=== PATIENT | female | born 1985 | race Native Hawaiian/Other Pacific Islander ===

== ENCOUNTER 2017-04-07 20:24 | Inpatient (IN) | payer OTHER ==
[2017-04-07 20:53] VITALS: BMI 32.9
[2017-04-07] MEDS ORDERED: Lactated Ringer's 1,000 ML IV SCH (21:00)
--- NOTE | 2017-04-07 21:30 | OBADHP ---
Datetime: 04/07/2017 20:57 IP Admit Plan Other: Cervical ripening Admit Comment, IP Provider: 31 y.o. , LMP 07/08/16, MARC 04/13/17, EGA 38w 6d confirmed by sono at 12 weeks, c/o decreased movement since late evening. Also, (+) vaginal spotting upon micturiti on this evening. Denies LOF; (+) vaginal pressure and possible occ Ctx. care: Drs. Hankins/Nick bland. Last visit 04/06/17, cervical exam then was told "cervix is dilated". 1) IUGR; 2) hypothyroid o n synthroid. 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 H/O PCOS PMH: 06/2016, hypothyroid PSH: denies NKDA Meds: PNV, iron, folate;and synthroid 75 micrograms - all taken QD Soc Hx: denies tobacco, illicit drug or EtOH use. x 3 years. Unemployed Fam Hx; Mother alive 46 -no med issues. Father alive 52 - DM. MGM - endometrial cancer. P.E.: as above. WD in NAD. Awake, alert, oriented to time, person and place. Pleasant and cooperat pietro. Accompanied by and her mother Assessment: 31 yo P0. 38w 6d, IUGR, decreased movement. GBS (-). (+) accelerations with scal p stimulation. Category 1 tracing. D/W patient, admission for cervical ripening and (vaginal) delive ry. Patient expressed an understanding and agrees. Clinically stable Plan: 1) Admit 2) NPO 3) Admission labs 4) Continuous EFM 5) Cervidil 6) Pain medications, upon request 7) Anticipate vaginal delivery - as per, and discussed with, Dr. Corea Pelvic Type - PN: Adequate Extremities - PN: Normal Abdomen - PN: Normal Back - PN: Normal Breast - PN: Normal Lungs - PN: Normal Heart - PN: Normal Thyroid - PN: Not Done Neurologic - PN: Normal HEENT - PN: Normal General - PN: Normal Presentation-Admit: Vertex FHR - Baseline A Provider: 135 Contraction Comments Provider: sporadic Comments, ACOG Physical Exam: Skin: warm, dry, intact Abdomen: Gravid. Soft, non tender. Fundal height 39 cm All other systems reviewed and are negative Gestation - Est Wks by US: 38w 6d IP Hx Assessment: The History has been Reviewed and is Current Vital Signs Provider: Reviewed; Within Normal Limits IP Chief Complaint: Decreased movement NICHD Variability Prov Fetus A: Moderate 6-25bpm FHR Category Provider Fetus A: Category I NICHD Decel Fetus A IP Provider: None Dilatation, Provider: 2 Effacement, Provider: 30 Station, Provider: -3 Genitourinary Exam: Normal DTRs - PN: Not Done EGA AdmitDate IP: 39.1 IP Adm Impression: Term, intrauterine ; No Active Labor; Intact Membranes IP Admit Plan: Admit to unit
--- NOTE | 2017-04-07 21:33 | OBPN ---
Datetime: 04/07/2017 21:29 IP Progress Note Comment: Cervidil placed in posterior vaginal vault A/P: 31 yo P0, 38w 6d, decreased movement; IUGR, hypothyroid. Category 1 tracing. Clinically stable. - continue present management Datetime: 04/07/2017 20:57 Contraction Comments Provider: sporadic FHR - Baseline A Provider: 135 Gestation - Est Wks by US: 38w 6d Presentation-Admit: Vertex Vital Signs Provider: Reviewed; Within Normal Limits FHR Category Provider Fetus A: Category I NICHD Variability Prov Fetus A: Moderate 6-25bpm Dilatation, Provider: 2 Effacement, Provider: 30 Station, Provider: -3 NICHD Decel Fetus A IP Provider: None
[2017-04-07 21:55] LABS: RBC URINE < 1 /hpf (0-3); URINE BILIRUBIN NEGATIVE (NEGATIVE); URINE BLOOD NEGATIVE (NEGATIVE); URINE COLOR Straw (YELLOW); URINE GLUCOSE (UA) NORMAL (Normal); URINE KETONE NEGATIVE (NEGATIVE); URINE LEUKOCYTE ESTERASE NEG Leu/uL (Negative); URINE PROTEIN NEGATIVE (NEGATIVE); URINE UROBILINOGEN NORMAL mg/dL (0.2-1.0); WBC URINE 1 /hpf (0-5)
[2017-04-07 22:00] LABS: CHLORIDE 101 mmol/L (98-107); POTASSIUM 3.5 mmol/L (3.6-5.2); SODIUM 134 mmol/L (132-148)
[2017-04-07 22:02] LABS: GFR AFRICAN-AMERICAN > 60
[2017-04-07 22:03] LABS: ALB/GLOB RATIO 1.1 (1.0-2.1); ALKALINE PHOSPHATASE 112 U/L (38-126); ALT/SGPT 13 U/L (9-52); AST/SGOT 19 U/L (14-36); BILIRUBIN,TOTAL 0.4 mg/dL (0.2-1.3); BLOOD UREA NITROGEN 5 mg/dL (7-17); CARBON DIOXIDE 21 mmol/L (22-30); GLUCOSE,RANDOM 139 mg/dL (65-105); TOTAL PROTEIN 6.6 g/dL (6.3-8.3)
[2017-04-07] MEDS ORDERED: cefOXitin IV 2 gm in Dextrose 0 GM/0 ML BAG IVPB ONE (22:46)
[2017-04-07] MEDS ORDERED: Sodium Citrate/Citric Acid 15 ml Sol ONE (22:46)
[2017-04-08] MEDS ORDERED: Oxytocin 30 UNIT 30 UNITS/500 ML BAG IV ONE (06:54)
[2017-04-08] MEDS ORDERED: Bupivacaine 0.125%/FentaNYL 200 ML EPI ONE (10:09)
[2017-04-08] MEDS ORDERED: Bupivacaine HCl 0.25% PF (10 ml) Inj ONE (13:02)
--- NOTE | 2017-04-08 15:05 | OBPN ---
Datetime: 04/08/2017 10:44 IP Procedures: Artificial ROM; Sterile Vag Exam IP Progress Plan: Continue present management Contraction Comments Provider: q1-4 FHR - Baseline A Provider: 130 IP Progress Note Comment: pt was examined at bbed side ve 370/-2 arom clear cont pitocoin anticipate Vital Signs Provider: Reviewed; Within Normal Limits NICHD Accel Fetus A IP Provider: 15X15 FHR Category Provider Fetus A: Category I NICHD Variability Prov Fetus A: Moderate 6-25bpm Dilatation, Provider: 3 Effacement, Provider: 70 Station, Provider: -2 NICHD Decel Fetus A IP Provider: None Datetime: 04/07/2017 20:57 IP Informed Consent Obtain: Vaginal Delivery
--- NOTE | 2017-04-08 15:05 | OBPN ---
Datetime: 04/08/2017 11:43 IP Procedures Other: iupc IP Procedures: Sterile Vag Exam IP Progress Plan: Continue present management FHR - Baseline A Provider: 130 IP Progress Note Comment: pt wasa examineed at bed side ve 3-4/70/-2 iupc placed cont pitocin anticipate NICHD Accel Fetus A IP Provider: 15X15 FHR Category Provider Fetus A: Category I NICHD Variability Prov Fetus A: Moderate 6-25bpm
--- NOTE | 2017-04-08 15:05 | OBADHP ---
Datetime: 04/08/2017 10:44 FHR - Baseline A Provider: 130 Contraction Comments Provider: q1-4 Vital Signs Provider: Reviewed; Within Normal Limits NICHD Variability Prov Fetus A: Moderate 6-25bpm NICHD Accel Fetus A IP Provider: 15X15 FHR Category Provider Fetus A: Category I NICHD Decel Fetus A IP Provider: None Dilatation, Provider: 3 Effacement, Provider: 70 Station, Provider: -2 Datetime: 04/07/2017 20:57 Admit Comment, IP Provider: 31 y.o. , LMP 07/08/16, MARC 04/13/17, EGA 38w 6d confirmed by sono at 12 weeks, c/o decreased movement since late evening. Also, (+) vaginal spotting upon micturiti on this evening. Denies LOF; (+) vaginal pressure and possible occ Ctx. care: Drs. Hankins/Nick bland. Last visit 04/06/17, cervical exam then was told "cervix is dilated". 1) IUGR; 2) hypothyroid o n synthroid. 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 H/O PCOS PMH: 06/2016, hypothyroid PSH: denies NKDA Meds: PNV, iron, folate;and synthroid 75 micrograms - all taken QD Soc Hx: denies tobacco, illicit drug or EtOH use. x 3 years. Unemployed Fam Hx; Mother alive 46 -no med issues. Father alive 52 - DM. MGM - endometrial cancer. P.E.: as above. WD in NAD. Awake, alert, oriented to time, person and place. Pleasant and cooperat pietro. Accompanied by and her mother Assessment: 31 yo P0. 38w 6d, IUGR, decreased movement. GBS (-). (+) accelerations with scal p stimulation. Category 1 tracing. D/W patient, admission for cervical ripening and (vaginal) delive ry. Patient expressed an understanding and agrees. Clinically stable Plan: 1) Admit 2) NPO 3) Admission labs 4) Continuous EFM 5) Cervidil 6) Pain medications, upon request 7) Anticipate vaginal delivery - as per, and discussed with, Dr. Nahomy Starks with above EGA AdmitDate IP: 39.1
--- NOTE | 2017-04-08 15:31 | OBPN ---
Datetime: 04/08/2017 15:27 IP Progress Impression: Arrest of dilatation/descent IP Procedures: Sterile Vag Exam FHR - Baseline A Provider: 130 IP Progress Note Comment: pt was examined at bed side ve 3-4/70/-2 unchanged pitocin 20 mu max. montevido units >200. adequate will rexamine in 1hr and if no change will do c/s pt undertand and agrees Vital Signs Provider: Reviewed; Within Normal Limits NICHD Accel Fetus A IP Provider: 15X15 FHR Category Provider Fetus A: Category I NICHD Variability Prov Fetus A: Moderate 6-25bpm Dilatation, Provider: 3 Effacement, Provider: 70 Station, Provider: -2
[2017-04-08] MEDS ORDERED: cefOXitin IV 2 gm in Dextrose 2 GM/50 ML BAG IVPB ONE (16:22)
[2017-04-08] MEDS ORDERED: Lidocaine Hydrochloride 5 ML INJ ONE (16:34)
[2017-04-08] MEDS ORDERED: Lidocaine 2% MPF (5 ml) Inj ONE (16:35)
[2017-04-08] MEDS ORDERED: Morphine 1 mg/ml preservative-free Inj(Duramorph) ONE (16:35)
[2017-04-08] MEDS ORDERED: Oxytocin 20 units in LR 2,000 ML IV ONE (16:42)
--- NOTE | 2017-04-08 16:48 | OBPN ---
Datetime: 04/08/2017 16:45 IP Progress Impression: Arrest of dilatation/descent IP Procedures: Sterile Vag Exam IP Progress Note Comment: pt was examined at bed side ve /-2] unchaned x 10 hr pitocin 20 colby > 200 la primary c;s called for failure to progres informed consent signed r/a/b discussee
[2017-04-08] MEDS ORDERED: ePHEDrine 50 mg/ml Inj ONE (16:49)
--- NOTE | 2017-04-08 17:34 | OBDS ---
DELIVERY PERSONNEL Delivery Doctor: Talisha Corea MD Scrub Nurse: Thuy Cabrera Rd Scientist: Joan Burris RN Anesthesiologist: DR Alondra Littlejohn MATERNAL INFORMATION Delivery Anesthesia: Epidural Medications in Delivery: pitocin Placenta Cultured: No Maternal Complications: Other Other Maternal Complications: iugr, hypothyroidism RN Comments: baby girl delivered via primary csection. apgars 9/9 baby stable and remains with mothe r Provider Comments: baby deliverd in lidia. end clean no com cord rround neck 9/9 LABOR SUMMARY EDC: 04/13/2017 00:00 No. Babies in Womb: 1 LABOR INFORMATION Reason for Induction: Not Applicable Onset of Labor: 04/07/2017 16:00 Cervical Ripening Agents: Cervidil (Annotations: cervidil removed) Oxytocin: Augmentation Group B Beta Strep: Negative Antibiotics # of Doses: 0 Antibiotics Time of Last Dose: 0 MEMBRANES Membranes Rupture Method: Artificial Rupture of Membranes: 04/08/2017 11:40 Length of Rupture (hrs): 5.25 Amniotic Fluid Color: Clear Amniotic Fluid Amount: None Amniotic Fluid Odor: Normal STAGES OF LABOR Stage 3 hrs: 0 Stage 3 min: 1 Total Time in Labor hrs: 24 Total Time in Labor min: 56 CSECTION DELIVERY Primary Indication: Other Other Primary Indication: Failure to progress CSection Urgency: Non Elective CSection Incidence: Primary Labor: Labor Elective: Nonelective CSection Incision: Lower Uterine Transverse BABY A INFORMATION Delivery Date/Time: 04/08/2017 16:55 Method of Delivery: Born in Route : No : N/A Forceps: N/A Vacuum Extraction: N/A Shoulder Dystocia : No SHOULDER DYSTOCIA BABY A Delivery Date/Time: 04/08/2017 16:55 PRESENTATION/POSITION BABY A Presentation: Cephalic Cephalic Presentation: Vertex Vertex Position: Right Occipital Posterior Breech Presentation: N/A PLACENTA INFORMATION BABY A Placenta Delivery Time : 04/08/2017 16:56 Placenta Method of Delivery: Manual Removal Placenta Status: Delivered SCORES BABY A Heart Rate 1 min: >100 bpm Resp Effort 1 min: Good Cry Reflex Irritability 1 min: Cough or Sneeze or Pulls Away Muscle Tone 1 min: Active Motion Color 1 min: Body [place], Extremities Blue Resuscitation Effort 1 min: N/A SCORE 1 MIN: 9 Heart Rate 5 min: >100 bpm Resp Effort 5 min: Good Cry Reflex Irritability 5 min: Cough or Sneeze or Pulls Away Muscle Tone 5 min: Active Motion Color 5 min: Body [place], Extremities Blue Resuscitation Effort 5 min: N/A SCORE 5 MIN: 9 INFANT INFORMATION BABY A Gestational Age at Delivery: 39.2 Gestational Status: Term Outcome : Liveborn Infant Condition : Stable Sex: Female IDENTIFICATION/MEDS BABY A ID Band Number: [id number] ID Band Location: Left Leg; Left Arm Sensor Applied: Yes Sensor Number: [id number] Sensor Location : Cord Clamp WEIGHT/LENGTH BABY A Birthweight (gms): 3070 Infant Weight (lb): 6 Infant Weight (oz): 12 Length Inches: 19.00 Length cms: 48.3 CORD INFORMATION BABY A No. Cord Vessels: 3 Nuchal Cord : Around Neck x1, Loose Nuchal Cord Other: 0 True Knot: 0 Cord Blood Taken: Yes Suction: Mouth; Nose ASSESSMENT BABY A Infant Complications: Other Infant Complications Other: iugr hypothyroidism Physical Findings at Delivery: Within Normal Limits Infant Respirations: Appears Normal Organ Tuner Electronic/ALS Called : Yes Care By: DR Reis Transferred To: Remains with Mother
--- NOTE | 2017-04-09 08:17 | OBPPN ---
Datetime: 04/09/2017 08:08 PP Pain Prov: Within normal limits PP Nausea Prov: Denies PP Abdomen/Uterus Prov: Normal PP Lochia Prov: Normal PP Extremities Prov: Normal PP C/S Incision Prov: Normal PP Comments Phys Exam Prov: fudus below um dressing clean and dry PP Impression Prov: Normal progression PP Plan Prov: Continue present management PP Progress Note Prov: pt was seen t bed side, pain under control, no n/v, tolerating liquid, waitin g void pod#2 s/p c/s cbc clear deit encourage ambulation cont post op caRE CONT PAIN CHRIS Vital Signs Provider PP: Reviewed; Within Normal Limits
[2017-04-09 08:39] LABS: BASO % 0.2 % (0.0-2.0); EOS # 0.1 K/uL (0.0-0.7); EOS % 0.5 % (0.0-4.0); HEMATOCRIT 33.8 % (34.0-47.0); LYMPH # 1.2 K/uL (1.0-4.3); LYMPH % 8.2 % (20.0-40.0); MEAN CELL VOLUME 87.8 fL (81.0-99.0); MEAN CORPUSCULAR HEMOGLOBIN 29.1 pg (27.0-31.0); MEAN CORPUSCULAR HGB CONC 33.2 g/dL (33.0-37.0); MEAN PLATELET VOLUME 8.8 fL (7.2-11.7); MONO # 0.9 K/uL (0.0-0.8); MONO % 6.1 % (0.0-10.0); PLATELET COUNT 221 K/uL (130-400); RED CELL DISTRIBUTION WIDTH 15.8 % (11.5-14.5); WHITE BLOOD COUNT 14.4 K/uL (4.8-10.8)
[2017-04-09 10:12] LABS: BASOPHIL 1 % (0-2); EOSINOPHIL 1 % (0-4); NEUTROPHIL 75 % (50-75); TOTAL CELLS COUNTED 100
[2017-04-09] MEDS: Oxycodone/Acetaminophen 5/325 mg Tab PO PRN ×2 (11:24→16:12)
[2017-04-09] MEDS ORDERED: Simethicone 80 mg Chewtab PO SCH (14:30)
[2017-04-09] MEDS: Simethicone 80 mg Chewtab PO SCH ×2 (18:16→22:17)
[2017-04-09 23:00] LABS: BASO % 0.2 % (0.0-2.0); EOS % 0.3 % (0.0-4.0); HEMATOCRIT 32.1 % (34.0-47.0); LYMPH # 1.1 K/uL (1.0-4.3); LYMPH % 7.4 % (20.0-40.0); MEAN CELL VOLUME 86.6 fL (81.0-99.0); MEAN CORPUSCULAR HEMOGLOBIN 28.8 pg (27.0-31.0); MEAN CORPUSCULAR HGB CONC 33.3 g/dL (33.0-37.0); MEAN PLATELET VOLUME 8.3 fL (7.2-11.7); MONO # 0.8 K/uL (0.0-0.8); MONO % 5.2 % (0.0-10.0); NRBC % 0.1 % (0.0-2.0); PLATELET COUNT 225 K/uL (130-400); RED CELL DISTRIBUTION WIDTH 15.8 % (11.5-14.5); WHITE BLOOD COUNT 15.2 K/uL (4.8-10.8)
[2017-04-09] MEDS: Piperacill/Tazo 3.375gm in Dex 3.375 GM/50 ML BAG IVPB SCH (23:28)
[2017-04-09 23:46] LABS: NEUTROPHIL 81 % (50-75); TOTAL CELLS COUNTED 100
[2017-04-10] MEDS: Piperacill/Tazo 3.375gm in Dex 3.375 GM/50 ML BAG IVPB SCH ×3 (05:53→22:45)
[2017-04-10] MEDS: Levothyroxine 75 MCG TAB PO SCH (05:58)
[2017-04-10] MEDS: Simethicone 80 mg Chewtab PO SCH ×4 (09:32→20:36)
[2017-04-10] MEDS: Oxycodone/Acetaminophen 5/325 mg Tab PO PRN ×4 (09:33→20:35)
--- NOTE | 2017-04-10 09:44 | OBPPN ---
Datetime: 04/10/2017 09:33 PP Pain Prov: Within normal limits PP Nausea Prov: Denies PP Flatus Prov: Yes PP BM Prov: Yes PP Breasts Prov: Normal PP Heart Prov: Normal PP Lungs Prov: Normal PP Abdomen/Uterus Prov: Abnormal PP Lochia Prov: Normal PP Vulva/Perineum Prov: Not Done PP Extremities Prov: Normal PP C/S Incision Prov: Normal PP Progress Prov: Not Applicable PP Comments Phys Exam Prov: Skin: warm, dry, intact Abdomen: Non distended. (+) ABS. Soft. Fundus firm, mobile, (+) tender; at umbilicus. Incision wit h subcuticular closere - clean dry and intact. Mild lochia rubra Extremities: no calf tenderness, or edema All other systems reviewed and are negative PP Impression Prov: Endometritis PP Plan Prov: Continue present management; Antibiotic therapy PP Progress Note Prov: Asked by Dr. Corea to see patient. Patient received in bed, sitting up, room 460. Not ambulating. Not really - "I don't have much milk". Denies nausea, vomiting. Voiding without difficulty. P.E.: as above. WD in NAD. Awake, alert, oriented to time, person and place. Pleasant and cooperat pietro - POD#1 H/H 11.2/33.8; WBC 14.4. Fever eval H/H 10.7/32.1, WBC 15.2 Assessment: POD#2, 31 yo P1, S/P primary C/S for failure to progress. Post-op/ fever, now on zosyn. Currently afebrile; other vital signs wnl. Returning GI and functions. Patient is encourag ed to put to her breasts to stimulate milk production. Also, encouraged to ambualte int he santino lways. Patient otherwise, clinically stable Plan: 1) Continue IV antibiotics 2) Ambulate 3) Continue incentive spirometer 4) Observe Vital Signs Provider PP: Reviewed; Within Normal Limits Vital Signs Provider Details PP: T max 101.6 1600 hours 04/09/17.
[2017-04-10] MEDS: Ferrous Fum/Folic Acid/IF/VI 1 Cap PO SCH (09:47)
[2017-04-11] MEDS: Simethicone 80 mg Chewtab PO SCH ×3 (01:58→09:28)
[2017-04-11] MEDS: Piperacill/Tazo 3.375gm in Dex 3.375 GM/50 ML BAG IVPB SCH (05:46)
[2017-04-11] MEDS: Oxycodone/Acetaminophen 5/325 mg Tab PO PRN ×2 (05:52→09:29)
[2017-04-11] MEDS: Levothyroxine 75 MCG TAB PO SCH (05:53)
[2017-04-11 09:03] VITALS: BP 92/57; PULSE 100; RESP 18; TEMP 98.2; O2SAT 97
[2017-04-11 09:23] LABS: BASO % 0.3 % (0.0-2.0); EOS # 0.3 K/uL (0.0-0.7); EOS % 2.2 % (0.0-4.0); HEMATOCRIT 31.1 % (34.0-47.0); LYMPH # 1.5 K/uL (1.0-4.3); LYMPH % 13.3 % (20.0-40.0); MEAN CORPUSCULAR HEMOGLOBIN 28.9 pg (27.0-31.0); MEAN CORPUSCULAR HGB CONC 32.6 g/dL (33.0-37.0); MEAN PLATELET VOLUME 8.3 fL (7.2-11.7); MONO # 0.7 K/uL (0.0-0.8); MONO % 6.4 % (0.0-10.0); RED CELL DISTRIBUTION WIDTH 15.5 % (11.5-14.5); WHITE BLOOD COUNT 11.5 K/uL (4.8-10.8)
[2017-04-11 09:24] LABS: MEAN CELL VOLUME 88.8 fL (81.0-99.0)
[2017-04-11] MEDS: Ferrous Fum/Folic Acid/IF/VI 1 Cap PO SCH (09:28)
--- NOTE | 2017-04-11 12:09 | OBPPN ---
Datetime: 04/11/2017 11:59 PP Pain Prov: Within normal limits PP Nausea Prov: Denies PP Flatus Prov: Yes PP BM Prov: Yes PP Breasts Prov: Not Done PP Heart Prov: Normal PP Lungs Prov: Normal PP Abdomen/Uterus Prov: Normal PP Lochia Prov: Normal PP Vulva/Perineum Prov: Not Done PP CVA Tenderness Prov: Normal PP Extremities Prov: Normal PP C/S Incision Prov: Normal PP Progress Prov: Not Applicable PP Comments Phys Exam Prov: Skin: warm, dry, intact Abdomen: (+) BS; Soft, minimal fundal tenderness; fundus firm, mobile, 2 FB below umbilicus. Minim al lochia All other systems reviewed and are negative PP Impression Prov: Normal progression PP Plan Prov: Discharge PP Progress Note Prov: Asked by Dr. Corea to evaluate patient [facility]; and mother also pressnt. Patient in very good spirits: bottlefeeding; attempting to breastfeed as well. Denies nausea, vomiting; ambulating (and fe eling better for it); and voiding without difficulty. P.E.: as above. Awake, alert, oriented to time, person and place. Pleaasant and cooperative. - CBC results today: WBC 11.5; H/H 10.7/31.1 Assessment: POD#3, 31 yo P1, S/P primary C/S for failure to progress. Post op fever - afebrile 36 hours on IV zosyn. Other vital signs stable. Anemia - asymptomatic; and hemodynamically stable. Clini evert stable. Plan: 1) discharge home; 2) see full discharge instructions - as per Dr. Corea
--- NOTE | 2017-04-12 08:44 | PCM.SURG1 ---
Surgeon's Initial Post Op Note - Surgeon's Notes Surgeon: dr castaneda [employer]: dr morris Type of Anesthesia: Other (epidural) Anesthesia Administered By: dr osorio Pre-Operative Diagnosis: 31 yr at 39+weeks areeset of descent Operative Findings: see the op reoprt Post-Operative Diagnosis: sane with dop Operation Performed: primary section Specimen/Specimens Removed: fetus. cord gas cord blood Estimated Blood Loss: EBL {In ML}: 800 Blood Products Given: N/A Drains Used: No Drains Post-Op Condition: Good Date of Surgery/Procedure: 04/08/17 Time of Surgery/Procedure: 15:55
--- NOTE | 2017-04-12 08:47 | CP.PCM.DIS ---
Provider - Provider Date of Admission: 04/07/17 20:53 Attending physician: Ammy Hankins MD Primary care physician: Shahla Time Spent in preparation of Discharge (in minutes): 15 Diagnosis - Discharge Diagnosis (1) Status post primary low transverse section Status: Acute (2) Failure to progress in first stage of labor Status: Acute (3) IUGR (intrauterine growth restriction) Status: Acute (4) Postoperative fever Status: Acute Hospital Course - Lab Results Lab Results: Micro Results 04/09/17 22:03 Blood-Venous Blood Culture - Preliminary NO GROWTH AFTER 48 HOURS 04/09/17 22:03 Blood-Venous Blood Culture - Preliminary NO GROWTH AFTER 48 HOURS 04/09/17 08:00 Urine,Clean Catch Urine Culture - Preliminary Gram Positive Cocci Most Recent Lab Values WBC 11.5 K/uL (4.8-10.8) H 04/11/17 09:12 RBC 3.50 Mil/uL (3.80-5.20) L 04/11/17 09:12 Hgb 10.1 g/dL (11.0-16.0) L 04/11/17 09:12 Hct 31.1 % (34.0-47.0) L 04/11/17 09:12 MCV 88.8 fL (81.0-99.0) D 04/11/17 09:12 MCH 28.9 pg (27.0-31.0) 04/11/17 09:12 MCHC 32.6 g/dL (33.0-37.0) L 04/11/17 09:12 RDW 15.5 % (11.5-14.5) H 04/11/17 09:12 Plt Count 260 K/uL (130-400) 04/11/17 09:12 MPV 8.3 fL (7.2-11.7) 04/11/17 09:12 Neut % (Auto) 77.8 % (50.0-75.0) H 04/11/17 09:12 Lymph % (Auto) 13.3 % (20.0-40.0) L 04/11/17 09:12 Foster % (Auto) 6.4 % (0.0-10.0) 04/11/17 09:12 Eos % (Auto) 2.2 % (0.0-4.0) 04/11/17 09:12 Baso % (Auto) 0.3 % (0.0-2.0) 04/11/17 09:12 Neut # 8.9 K/uL (1.8-7.0) H 04/11/17 09:12 Lymph # 1.5 K/uL (1.0-4.3) 04/11/17 09:12 Foster # 0.7 K/uL (0.0-0.8) 04/11/17 09:12 Eos # 0.3 K/uL (0.0-0.7) 04/11/17 09:12 Baso # 0.0 K/uL (0.0-0.2) 04/11/17 09:12 Neutrophils % (Manual) 81 % (50-75) H 04/09/17 22:54 Band Neutrophils % 4 % (0-2) H 04/09/17 22:54 Lymphocytes % (Manual) 8 % (20-40) L 04/09/17 22:54 Monocytes % (Manual) 7 % (0-10) 04/09/17 22:54 Eosinophils % (Manual) 1 % (0-4) 04/09/17 08:09 Basophils % (Manual) 1 % (0-2) 04/09/17 08:09 Platelet Estimate Normal (NORMAL) 04/09/17 22:54 Hypochromasia (manual) Slight 04/09/17 08:09 Poikilocytosis (manual Slight 04/09/17 08:09 Anisocytosis (manual) Slight 04/09/17 22:54 Sodium 134 mmol/L (132-148) 04/07/17 21:45 Potassium 3.5 mmol/L (3.6-5.2) L 04/07/17 21:45 Chloride 101 mmol/L (98-107) 04/07/17 21:45 Carbon Dioxide 21 mmol/L (22-30) L 04/07/17 21:45 Anion Gap 16 (10-20) 04/07/17 21:45 BUN 5 mg/dL (7-17) L 04/07/17 21:45 Creatinine 0.4 MG/DL (0.7-1.2) L 04/07/17 21:45 Est GFR ( Amer) > 60 04/07/17 21:45 Est GFR (Non-Af Amer) > 60 04/07/17 21:45 Random Glucose 139 mg/dL (65-105) H 04/07/17 21:45 Calcium 9.0 mg/dl (8.6-10.4) 04/07/17 21:45 Total Bilirubin 0.4 mg/dL (0.2-1.3) 04/07/17 21:45 AST 19 U/L (14-36) 04/07/17 21:45 ALT 13 U/L (9-52) 04/07/17 21:45 Alkaline Phosphatase 112 U/L (38-126) 04/07/17 21:45 Total Protein 6.6 g/dL (6.3-8.3) 04/07/17 21:45 Albumin 3.5 g/dL (3.5-5.0) 04/07/17 21:45 Globulin 3.2 gm/dL (2.2-3.9) 04/07/17 21:45 Albumin/Globulin Ratio 1.1 (1.0-2.1) 04/07/17 21:45 Urine Color Straw (YELLOW) 04/07/17 21:45 Urine Clarity Clear (Clear) 04/07/17 21:45 Urine pH 6.0 (5.0-8.0) 04/07/17 21:45 Ur Specific [place] 1.006 (1.003-1.030) 04/07/17 21:45 Urine Protein Negative mg/dL (NEGATIVE) 04/07/17 21:45 Urine Glucose (UA) Normal mg/dL (Normal) 04/07/17 21:45 Urine Ketones Negative mg/dL (NEGATIVE) 04/07/17 21:45 Urine Blood Negative (NEGATIVE) 04/07/17 21:45 Urine Nitrate Negative (NEGATIVE) 04/07/17 21:45 Urine Bilirubin Negative (NEGATIVE) 04/07/17 21:45 Urine Urobilinogen Normal mg/dL (0.2-1.0) 04/07/17 21:45 Ur Leukocyte Esterase Neg Layo/uL (Negative) 04/07/17 21:45 Urine WBC (Auto) 1 /hpf (0-5) 04/07/17 21:45 Urine RBC (Auto) < 1 /hpf (0-3) 04/07/17 21:45 Ur Squamous Epith Cells 2 /hpf (0-5) 04/07/17 21:45 RPR Nonreactive (NONREACTIVE) 04/07/17 21:45 HIV 1&2 Antibody Screen Negative (NEGATIVE) 04/07/17 21:45 Blood Type A POSITIVE 04/07/17 21:45 Antibody Screen Negative 04/07/17 21:45 Discharge Exam - Head Exam Head Exam: ATRAUMATIC, NORMAL INSPECTION, NORMOCEPHALIC - Eye Exam Eye Exam: EOMI, Normal appearance, PERRL Pupil Exam: NORMAL ACCOMODATION, PERRL - GI/Abdominal Exam GI & Abdominal Exam: Normal Bowel Sounds - Rectal Exam Rectal Exam: NORMAL INSPECTION - Exam Exam: Circumcision, NORMAL INSPECTION External exam: NORMAL EXTERNAL EXAM Speculum exam: NORMAL SPECULUM EXAM Bimanual exam: NORMAL BIMANUAL EXAM - Neurological Exam Neurological exam: Alert, CN II-XII Intact, Normal Gait, Oriented x3, Reflexes Normal - Psychiatric Exam Psychiatric exam: Normal Affect, Normal Mood - Skin Skin Exam: Dry, Intact, Normal Color, Warm Discharge Plan - Discharge Medications Prescriptions: Docusate Sodium/Ferrous Fumara [Kristy-Sequels 100 mg -150 mg] 1 tab PO DAILY # 60 tab - Follow Up Plan Condition: GOOD Disposition: HOME/ ROUTINE Instructions: Section (DC), Caring for Your Baby (DC), Your Baby (DC), and Nipple Soreness (DC), How to Increase Your Milk Supply (GEN), and Your Diet (DC), Jaundice in Newborns (DC), Your [place]'s Appearance (DC)
--- NOTE | 2017-04-13 07:52 | OP ---
PROCEDURE DATE: 04/08/2017 PREOPERATIVE DIAGNOSES: A 31-year-old 1, para 0 at 39+ weeks with intrauterine growth retard ation, failure to descend. POSTOPERATIVE DIAGNOSES: A 31-year-old 1, para 0 at 39+ weeks with intrauterine growth retar dation, failure to descend ____. SURGEON: Alexander Corea MD COOPERATIVE EDUCATION COORDINATOR SURGEON: Dr. Stuart, who was present throughout the surgery for retraction, exposure and p ushing at the time of the delivery. PROCEDURE PERFORMED: Primary section. ESTIMATED BLOOD LOSS: 800 mL. DESCRIPTION OF PROCEDURE: After informed consent was obtained, the patient was brought to the operat ing room, placed on the table where epidural anesthesia was found to be adequate. She was prepped an d draped in normal sterile fashion. At 2 cm above the pubic bone, a skin incision was made with a kn snow ____ with a Bovie. The fascia was excised ____ bluntly into the abdominal cavity. Rectus muscle , the peritoneum excised. Then the bladder blade was placed. Bladder flap was ____ blade was replaced. Lower uterine segment incision was made with a knife. It was extended on both the kellie es using curved Jean scissors. Baby delivered in a direct occiput position. Cord was around the nec k, which was reduced and cord gas was taken. Cord clamp was done. Cord was cut. handed to t he waiting certified indoor environmentalist. Placenta delivered manually and sent to the pathology. After that, uterus exteriorized, cleared of all the debris. Uterus was closed with 1 Vicryl in running locking stitch a nd second layer was closed with the same stitch. It was found to be hemostatic. Cul-de-sac was marah red of all the clots and debris. Uterus returned back to abdominal cavity. The incision was looked back on and it was not bleeding. Peritoneum was closed 2-0 Vicryl in nonlocking fashion. Muscle was closed with 2-0 Vicryl in nonlocking fashion. Fascia was closed with ____ in a nonlocking fashion _ ___ 0 Vicryl interrupted fashion. Skin was closed using 3-0 Monocryl. The patient tolerated the pro cedure well. Laps and instruments correct x 2. Alexander Corea MD cc: [id number] TT: 04/12/2017 09:19:24 en
== END 2017-04-11 13:45 | disposition home or self-care (01) | DRG 765 ==
LOC: C.EROB 20:24 → C.9E 20:53 → C.4D 21:15 → C.4M 04-08 20:20
PROVIDERS: ADMIT Specialist; ATTEND Specialist
PROC: 3E0P7GC Introduction of Other Therapeutic Substance into Female Reproductive, Via Natural or Artificial Opening (ICD-10-PCS; 2017-04-07)
PROC: 10D00Z1 Extraction of Products of Conception, Low, Open Approach (ICD-10-PCS; principal; 2017-04-08)
DX: O36.8130 Decreased fetal movements, third trimester, not applicable or unspecified (principal); O62.1 Secondary uterine inertia; O86.4 Pyrexia of unknown origin following delivery; O36.5930 Maternal care for other known or suspected poor fetal growth, third trimester, not applicable or unspecified; O99.284 Endocrine, nutritional and metabolic diseases complicating childbirth; E03.9 Hypothyroidism, unspecified; O69.81X0 Labor and delivery complicated by cord around neck, without compression, not applicable or unspecified; Z3A.39 39 weeks gestation of pregnancy; Z37.0 Single live birth